=== PATIENT | female | born 1980 | race Caucasian/White ===

== ENCOUNTER 2017-09-06 06:11 | Emergency (ER) | payer BC ==
[~2017-09-06] VITALS: Ht 165.1 cm; Wt 54.1 kg
[2017-09-06 06:17] VITALS: TEMP 98.4
[2017-09-06] MEDS ORDERED: PRENATAL FORMU1 EAC3 PO (06:22)
[2017-09-06 07:17] LABS: BASO % 0.5 % (0.0-2.0); EOS # 0.3 (0.0-0.7); EOS % 2.9 % (0-4.0); GRAN # 5.5 (1.4-6.5); GRAN % 63.3 % (42.2-75.2); LYMPH # 2.3 (1.2-3.4); LYMPH % 26.6 % (20.0-51.0); MEAN CELL VOLUME 90 fl (80.0-100.0); MEAN CORPUSCULAR HGB CONC 33 g/dl (33.0-37.0); MEAN PLATELET VOLUME 10.8 fl (7.4-10.4); MONO # 0.6 (0.1-0.6); MONO % 6.5 % (1.7-9.3); PLATELET COUNT 155 K/mm3 (130-400); RED BLOOD COUNT 3.96 M/mm3 (4.10-5.30); REDCELL DISTRIBUTION WIDTH-CV 13.7 % (11.5-14.5)
[2017-09-06 07:19] LABS: HEMATOCRIT 35.6 % (37.0-47.0); HEMOGLOBIN 11.8 g/dl (12.5-16.0); MEAN CORPUSCULAR HEMOGLOBIN 30 pg (27.0-31.0)
[2017-09-06 07:25] LABS: ALBUMIN 4.3 gm/dL (3.5-5.0); BILIRUBIN,TOTAL 0.3 mg/dL (0.0-1.0); CALCIUM 8.5 mg/dL (8.4-10.2); CREATININE, serum 0.6 mg/dL (0.52-1.25); POTASSIUM 3.5 mmol/L (3.4-5.0); TOTAL PROTEIN 7.2 gm/dL (6.4-8.2)
[2017-09-06 10:28] VITALS: BP 122/77; PULSE 88
== END 2017-09-06 10:35 | disposition home or self-care (01) ==
LOC: COL.ER 06:11
PROVIDERS: Emergency Medicine
DX: O03.9 Complete or unspecified spontaneous abortion without complication (principal); Z3A.10 10 weeks gestation of pregnancy

== ENCOUNTER → 2020-02-29 | Outpatient (CLI) | payer BC ==
[~2020-02-29] MED LIST: PRENATAL FORMU1 EAC3 PO
== END ==
LOC: COL.RAD 13:13
DX: R59.0 Localized enlarged lymph nodes (principal)

== ENCOUNTER → 2020-03-22 | Outpatient (CLI) | payer BC | LOC: MC.RAD 06:54 | DX: N63.10 Unspecified lump in the right breast, unspecified quadrant (principal); N63.21 Unspecified lump in the left breast, upper outer quadrant; Z80.3 Family history of malignant neoplasm of breast ==

== ENCOUNTER → 2020-09-23 | Outpatient (CLI) | payer BC | LOC: MC.RAD 13:58 | DX: N63.41 Unspecified lump in right breast, subareolar (principal); Z80.3 Family history of malignant neoplasm of breast ==

== ENCOUNTER → 2020-09-24 | Outpatient (CLI) | payer BC | LOC: COL.RAD 07:53 | DX: Z31.41 Encounter for fertility testing (principal) | CPT/HCPCS: Q9967 ==

== ENCOUNTER → 2021-08-12 | Outpatient (CLI) | payer BC | LOC: MC.RAD 15:38 | DX: Z12.31 Encounter for screening mammogram for malignant neoplasm of breast (principal) ==

== ENCOUNTER → 2023-10-26 | Outpatient (CLI) | payer BC | LOC: MC.RAD 09:53 | DX: Z12.31 Encounter for screening mammogram for malignant neoplasm of breast (principal) ==